=== PATIENT | female | born 1960 | race Two or more races ===

== ENCOUNTER 2018-02-04 11:55 | Emergency (ER) | payer MEDICAID ==
[~2018-02-04] VITALS: Ht 175.3 cm; Wt 86.2 kg
[2018-02-04] MEDS ORDERED: ONDANSETRON ODT 4 MG TAB PO ONE (12:00)
[2018-02-04] MEDS ORDERED: HYDROcodone-ACET 10/325MG TAB PO ONE (12:00)
[2018-02-04 14:05] VITALS: BP 145/72
== END 2018-02-04 14:02 | disposition home or self-care (01) ==
LOC: ER 11:55 → EDUNIT# 11:55 → EDBD 11:55 → ER 14:02
DX: S40.011A Contusion of right shoulder, initial encounter (principal); S09.8XXA Other specified injuries of head, initial encounter; E78.5 Hyperlipidemia, unspecified; Z90.49 Acquired absence of other specified parts of digestive tract; Z90.710 Acquired absence of both cervix and uterus; Z91.81 History of falling; W10.8XXA Fall (on) (from) other stairs and steps, initial encounter; Y93.89 Activity, other specified; Y92.511 Restaurant or cafe as the place of occurrence of the external cause; Y99.8 Other external cause status
CPT/HCPCS: 70450; 73200; 99284; Q0162